=== PATIENT | male | born 1940 | race Caucasian/White ===

== ENCOUNTER 2018-07-17 21:27 | Emergency (ER) | payer MEDICARE ==
[~2018-07-17] VITALS: Ht 175.3 cm; Wt 95.5 kg
[2018-07-17] MEDS ORDERED: GABA-529 PO (21:43)
[2018-07-17] MEDS ORDERED: QUET25TA PO (21:43)
[2018-07-17] MEDS ORDERED: METF-960 PO (21:43)
[2018-07-17 21:44] LABS: GLUCOSE,POINT OF CARE 105 MG/DL (70-110)
[2018-07-17] MEDS ORDERED: SODIUM CHLORIDE 0.9% 1,000 ML IV ONE (21:44)
[2018-07-17] MEDS ORDERED: DiphenhydrAMINE HCL 50 MG/ML VIAL IVP ONE (21:45)
[2018-07-17] MEDS ORDERED: FAMOTIDINE 10 MG/ML 2 ML VIAL IVP ONE (21:45)
[2018-07-17] MEDS ORDERED: MethylPREDNISolone SOD SUCC 125 MG/2 ML VIAL IVP ONE (21:45)
[2018-07-17] MEDS ORDERED: HydrOXYzine HCL 50 MG TABLET PO ONE (23:45)
[2018-07-18 01:19] VITALS: BP 111/75
== END 2018-07-18 01:33 | disposition home or self-care (01) ==
LOC: EMS 21:29
DX: T78.40XA Allergy, unspecified, initial encounter (principal); E11.9 Type 2 diabetes mellitus without complications; I25.2 Old myocardial infarction; Z79.84 Long term (current) use of oral hypoglycemic drugs; Z88.2 Allergy status to sulfonamides; X58.XXXA Exposure to other specified factors, initial encounter
CPT/HCPCS: 82962; 96374; 96375; 99283; J1200; J2930; J3490; J7030